=== PATIENT | female | born 1990 | race Caucasian/White ===

== ENCOUNTER 2020-03-28 05:07 | Inpatient (IN) | payer OTHER, SELFPAY ==
[2020-03-28] VITALS (140 sets, daily range): BP systolic 64–134; BP diastolic 31–86; PULSE 57–113; RESP 14–16; TEMP 36.3–37.2; O2SAT 96–100; BMI 32.1
--- NOTE | 2020-03-28 05:07 | LDADM ---
This patient, Fernanda Dickens, was admitted to Labor/Delivery/Recovery 104 on 03/28/20 at 05:07. Plans for labor, pain management and were discussed with patient. Patient/family oriented to hospital policies and general routines including ID bracelet, bed and alarms, visiting hours, pain management, procedures, bathroom and other care routines, personal items, smoking policy, room service/diet and guest tray routines, infant security routines, and visiting hours. Patient/Family are encouraged to report perceived risks to care and to ask questions if they do not understand what they are told or what they should do. See OBIX for further documentation.
[2020-03-28 05:42] LABS: Basophils Absolute Auto 0.1 K/mm3 (0.0-0.1); Basophils Percent Auto 0.6 % (0.2-1.2); Eosinophils Absolute Auto 0.2 K/mm3 (0-0.3); Eosinophils Percent Auto 1.8 % (0-4.4); Hematocrit 31.9 % (37.0-47.0); Hemoglobin 10.6 g/dL (12.0-15.0); Immature Granulocyte Absolute 0.03 K/mm3 (0.00-0.031); Immature Granulocyte Percent A 0.3 % (0-0.5); Lymphocytes Absolute Auto 2.06 K/mm3 (0.9-3.2); Lymphocytes Percent Auto 23.6 % (18.3-44.2); Mean Corpuscular HGB Conc 33.2 g/dl (32-36); Mean Corpuscular Hemoglobin 31.4 pg (26-34); Mean Corpuscular Volume 94.4 fl (80-100); Mean Platelet Volume 9.8 fl (7.4-10.4); Monocytes Absolute Auto 0.6 K/mm3 (0.1-0.6); Monocytes Percent Auto 6.4 % (2.6-8.5); Neutrophils Absolute Auto 5.9 K/mm3 (1.3-6.7); Neutrophils Percent Auto 67.3 % (45.5-73.1); Platelet Count Result 292 k/mm3 (150-375); Red Blood Count 3.38 M/mm3 (4.2-5.4); Red Cell Distribution Width 14.3 % (11.5-14.5); White Blood Count 8.7 K/mm3 (4.5-10.0)
[2020-03-28] MEDS: AMPICILLIN 2 GM/NS 100 ML 2 GM/100 ML BAG IVPB (05:48)
[2020-03-28] MEDS: LACTATED RINGERS 1,000 ML 125 ML IV CONT ×2 (05:48→09:08)
[2020-03-28] MEDS: OXYTOCIN 30 UNITS/NS 500 ML 30 UNITS/500 ML BAG IV CONT (05:53)
--- NOTE | 2020-03-28 07:25 | WPDOBADMIT ---
Obstetrics - Admit Note Admission Note: AROm clear fluid 2/ vertex record reviewed. No pertinent additions to the history and/or any subsequent changes in the physical findings that are not consistent with the expected course of the were found. Additions to the history and/or subsequent changes in the physical findings follow. None.
[2020-03-28] MEDS: LACTATED RINGERS 1,000 ML 999 ML IV CONT (07:54)
[2020-03-28 07:56] LABS: Rapid Plasma Reagin Non-Reactive (NonReactive)
[2020-03-28] MEDS: PHENYLEPHRINE 1,000 MCG/10 ML SYRINGE 1000 MCG (08:28)
--- NOTE | 2020-03-28 09:31 | WPDANESEPPF ---
Anes - Initial Pre Proc Eval Date/Time: 03/28/20 09:31 Surgeon: Mukesh Flores MD Pre Op Diagnosis: Induction of labor Patient Data Age: 29 Gender: F Height: 5 ft 4 in Weight: 85 kg Last Vital Signs Temp 37.2 C 03/28/20 07:58 Pulse 65 03/28/20 09:16 BP 113/63 03/28/20 09:16 Pulse Ox 98 03/28/20 09:30 Allergies Allergy/AdvReac Type Severity Reaction Status Date / Time latex Allergy Severe Anaphylactic Verified 05/19/13 23:09 Shock duloxetine [From Cymbalta] AdvReac Unknown Verified 03/28/20 05:31 pregabalin [From Lyrica] AdvReac Unknown Verified 03/28/20 05:31 Home Medications Medication Instructions Recorded Confirmed Type montelukast 10 mg PO DAILY 03/28/20 03/28/20 History omeprazole 20 mg PO DAILY 03/28/20 03/28/20 History Laboratory Tests 03/28/20 03/28/20 03/28/20 05:37 05:37 05:37 WBC 8.7 K/mm3 K/mm3 (4.5-10.0) RBC 3.38 M/mm3 L M/mm3 (4.2-5.4) Hgb 10.6 g/dL L g/dL (12.0-15.0) Hct 31.9 % L % (37.0-47.0) MCV 94.4 fl fl (80-100) MCH 31.4 pg pg (26-34) MCHC 33.2 g/dl g/dl (32-36) RDW 14.3 % % (11.5-14.5) Plt Count 292 k/mm3 k/mm3 (150-375) MPV 9.8 fl fl (7.4-10.4) Immature Gran % (Auto) 0.3 % % (0-0.5) Neut % (Auto) 67.3 % % (45.5-73.1) Lymph % (Auto) 23.6 % % (18.3-44.2) [place] % (Auto) 6.4 % % (2.6-8.5) Eos % (Auto) 1.8 % % (0-4.4) Baso % (Auto) 0.6 % % (0.2-1.2) Lymph # (Auto) 2.06 K/mm3 K/mm3 (0.9-3.2) [place] # (Auto) 0.6 K/mm3 K/mm3 (0.1-0.6) Eos # (Auto) 0.2 K/mm3 K/mm3 (0-0.3) Baso # (Auto) 0.1 K/mm3 K/mm3 (0.0-0.1) Abs Immat Gran (auto) 0.03 K/mm3 K/mm3 (0.00-0.031) Absolute Neuts (auto) 5.9 K/mm3 K/mm3 (1.3-6.7) Absolute Nucleated RBC 0.0 K/mm3 K/mm3 (0.0-0.012) Nucleated RBC % 0.0 % % (0.0-0.2) RPR Non-reactive (NonReactive) Blood Type O Positive Antibody Screen Negative Patient hx anesthesia problems: none Family hx anesthesia problems: none [facility] Past Medical History Medical History Asthma Social History Social History Smoking status: Never smoker Substance use: never Spiritual care concerns: No Anes - Eval Final PreProcedure Day of Procedure 03/28/20 09:31 Patient weight: overweight Neurological: alert and oriented Last oral intake: >/= 8 hours ASA classification: II Emergent: no Anesthetic plan: proceed Anesthesia type and monitoring: regional epidural and standard monitoring Informed Consent: The patient's anesthetic plan and its attendant risks and benefits were discussed with the patient/family/POA. Questions were solicited and answers provided to the satisfaction of the patient/family/POA.
[2020-03-28] MEDS: AMPICILLIN 1 GM/NS 50 ML 1 GM/50 ML BAG IVPB (09:45)
[2020-03-28 13:13] LABS: Amphetamine Screen Urine Negative (Negative); Barbiturate Screen Urine Negative (Negative); Benzodiazepines Screen Urine Negative (Negative); Cannabinoid Screen Urine Negative (Negative); Cocaine Screen Urine Negative (Negative); Methadone Screen Urine Negative (Negative); Opiate Screen Urine Negative (Negative); Phencyclidine Screen Urine Negative (Negative)
--- NOTE | 2020-03-28 14:26 | PM.OBPRVD ---
OB - Delivery Note Procedure Delivery date: 03/28/20 events: Labor Induction Intrapartal events: None Induction method: AROM and per pitocin protocol Delivery monitor: external FHT and external uterine Route of delivery: Laceration description: None Estimated blood loss (mL): 75 Anesthesia type: Epidural Disposition: observation [place] Baby Date of : 03/28/20 Time of : 14:02 Weeks of gestation at delivery: 39 gender: Female Weight (pounds): 7 Weight (ounces): 6 presentation: vertex Placenta delivery description: Spontaneous cord vessel description: 3 Vessels and Nuchal Cord score one minute: 9 score five minutes: 9
[2020-03-28] MEDS: OXYTOCIN 30 UNITS/NS 500 ML 30 UNITS/500 ML BAG 125 UNITS IV CONT (14:36)
[2020-03-28] MEDS: IBUPROFEN 600 MG TABLET PO (16:38)
[2020-03-28] MEDS: WITCH HAZEL 40 PADS 1 PAD TOPICAL (16:39)
[2020-03-28] MEDS: BENZOCAINE 20% AER SPR (*SP) 56 GM CAN 1 SPRAY TOPICAL (16:39)
[2020-03-29] MEDS: IBUPROFEN 600 MG TABLET PO ×3 (00:45→17:25)
[2020-03-29 05:31] LABS: Hematocrit 29.2 % (37.0-47.0); Hemoglobin 9.6 g/dL (12.0-15.0)
--- NOTE | 2020-03-29 07:54 | PM.OBPNVD ---
OB - PN: Subj Subjective Date/time seen: 03/29/20 07:54 Patient reports after pains and extreme crapping. ibuprofen not helping much bleeding light OB - PN: Obj Data Labs CBC & Chem 7: 03/29/20 04:12 Labs: Laboratory Results - last 24 hr 03/28/20 03/28/20 03/29/20 05:37 10:00 04:12 Hgb 9.6 L Hct 29.2 L Urine Opiates Screen Negative Urine Methadone Screen Negative Ur Barbiturates Screen Negative Ur Phencyclidine Scrn Negative Ur Amphetamine Screen Negative U Benzodiazepines Scrn Negative Urine Cocaine Screen Negative U Cannabinoids Screen Negative RPR Non-reactive OB - PN A/P Assessment and Plan (1) (normal spontaneous vaginal delivery): Code(s): O80 - Encounter for full-term uncomplicated delivery Status: Acute Assessment and Plan: continue with pp care. Time Spent With Patient Time: Total time spent is greater than 50% in coordination of care (as documented) at patient's floor/unit and/or counseling patient: Exam Const: General: comfortable GI: Other: ff below umbilicus
[2020-03-29 08:05] VITALS: BP 108/76; PULSE 71; RESP 18; TEMP 37.4; O2SAT 100
[2020-03-29] MEDS: MULTIVIT/MIN/PREN/FOL AC/IRON TABLET 1 TAB PO (08:28)
[2020-03-29] MEDS: DOCUSATE SODIUM 100 MG CAPSULE PO ×2 (08:28→17:25)
[2020-03-29] MEDS: POLYSACCHARIDE IRON COMPLEX 150 MG CAPSULE PO ×2 (08:28→17:24)
--- NOTE | 2020-03-29 08:45 | PC.NURSE ---
Consulted with patient, upon entering mother has infant to breast using a nipple shield. Mother reports she breastfed other children for several months with shield. Mother states she used the 16mm or 20mm and did not pump, until weeks later when returning to school. Mother felt she had an over supply with pumping Discussed nipple shield precautions and possible complications. Instructions given on application and cleaning of shield. Patient able to return demonstration on proper application of shield. Discussed the need to initiate pumping if infant continues to nurse with the shield. Patient verbalizes understanding.. Mother has in football position, holding breast in C hold, has a shallow latch with shield. Discussed adjusting latch more deeply while feeding. Mother reports she does not have discomfort. is full term infant, suggested a 24mm shield reviewing the 16 and 20 are freq used for or small infants. The 24mm flange may assist with obtaining deeper latch and flanging out lips. Reviewed feeding cues, frequencies, duration of feedings, feeding elimination flow sheet, and signs of adequate intake. Demonstrated stimulation techniques to wake for feeding. Assisted with to breast. Reviewed positioning/alignment, holding breast and asymmetrical latch on. Infant was able to latch correctly. Infant nursed eagerly, with steady draws and occasional swallowing noted. Reviewed signs of a correct latch, effective nursing and suck swallow ratio. was able to maintain latch without discomfort to mother. Discussed weaning techniques from shield. Nipple care reviewed. Suggested pumping with shield use until her milk is established and infant is gaining weight. Mother does not believe she needs to . Instructed mother to call out for RN assistance if she is unable to latch for feeding or she has discomfort with nursing. Instructed feeding should be initiated three hours from start of last feeding or if feeding cues are noted before. Mother voiced understanding of information shared.
--- NOTE | 2020-03-29 09:57 | PC.NURSE ---
Patient was given the opportunity to view the discharge video Mother & Baby Care, The First Two Weeks and to ask questions. Patient declined viewing the video and has been given the mother/baby guide for home reference. Pt. reports watching video with 2 previous children. FOB encouraged to watch due to this being his first child.
[2020-03-29 18:31] VITALS: BP 122/78; PULSE 68; RESP 15; TEMP 36.8; O2SAT 98
[2020-03-30] MEDS: IBUPROFEN 600 MG TABLET PO ×2 (00:39→07:25)
[2020-03-30] MEDS: DOCUSATE SODIUM 100 MG CAPSULE PO (07:25)
[2020-03-30] MEDS: MULTIVIT/MIN/PREN/FOL AC/IRON TABLET 1 TAB PO (07:26)
[2020-03-30] MEDS: POLYSACCHARIDE IRON COMPLEX 150 MG CAPSULE PO (07:26)
[2020-03-30 07:50] VITALS: BP 134/78; PULSE 75; RESP 18; TEMP 36.7
--- NOTE | 2020-03-30 10:07 | PM.OBPNVD ---
OB - PN: Subj Subjective Date/time seen: 03/30/20 10:07 Patient comments: no complaints baby status: doing well [place] feeding status: exclusively breast feeding OB - PN: Obj Data Labs CBC & Chem 7: 03/29/20 04:12 OB - PN A/P Assessment and Plan (1) (normal spontaneous vaginal delivery): Code(s): O80 - Encounter for full-term uncomplicated delivery Status: Acute Assessment and Plan: continue with pp care. Time Spent With Patient Time: Total time spent is greater than 50% in coordination of care (as documented) at patient's floor/unit and/or counseling patient: Exam GI: Other: ff below umbilicus
--- NOTE | 2020-04-15 06:28 | PM.OBDSVD ---
DS: Admitting Diagnosis Admitting Diagnosis Admitting Diagnosis: Encounter for supervision of normal , unspecified, third trimester DS: Discharge Diagnosis Discharge Diagnosis (1) (normal spontaneous vaginal delivery): Code(s): O80 - Encounter for full-term uncomplicated delivery Status: Acute OB - DS: Summary OB Procedures : None OB Procedures Intrapartum: Spontaneous Vag Delivery OB Procedures: : None Time Spent with Patient Time attestation: Total time spent providing and/or coordinating discharge services: Exam Const: General: comfortable GI: GI Palp: Yes Soft to palpation Discharge Plan Discharge Attending physician on discharge: Mukesh Flores Consulting providers: Oral Judge Discharging Clinician: Mukesh Flores Patient Disposition: Home, Self-Care Activity: may shower and pelvic rest Diet: regular Discharge Instructions: Education: Mom and Baby Guide Given to: Mother Follow-Up: Call your delivering provider's office for an appointment to be seen in: 6 Weeks Mom and baby should come to the [facility] for the follow-up appointment. Appointment Date/Time: April 01, 2020 at 10:00 am What to expect at your follow-up visit: Blood Pressure Check Physical Assessment Call [phone] if you are unable to keep your appointment time. BREAST CARE: 1. Wear a snug supportive bra. 2. For engorgement discomfort: Breast Feeding: A. Apply warm moist washcloths B. Express milk as needed to relieve engorgement C. Wear loose clothing Bottle Feeding: A. May apply ice packs 3. For sore nipples: A. Identify correct latch-on B. Apply warm moist washcloths before and after nursing C. Air dry nipples after nursing D. May apply Lansinoh cream to nipples EPISIOTOMY/PERINEAL CARE: 1. Until bleeding stops, use your mckenzie bottle after urinating 2. Change your pad frequently throughout the day 3. You may take sitz baths several times a day (fill your bathtub with warm water and soak for 20 minutes.) Do NOT bathe in the water 4. No tub baths until seen by your physician - You may shower ACTIVITY: 1. Rest as much as possible. 2. Do not exercise or lift anything heavier than your baby (such as laundry or other children.) 3. Avoid stairs or driving as much as possible. 4. Do not put anything into the vagina. No douching, tampons, or sexual activity until seen by physician. NOTIFY PHYSICIAN IF YOU HAVE ANY QUESTIONS OR IF ANY OF THE FOLLOWING SYMPTOMS OCCUR: 1. If your episiotomy or incision becomes red, swollen, or more painful than what you have experienced in the hospital. 2. If your vaginal bleeding becomes foul smelling. 3. If your vaginal bleeding becomes more heavy than a period or if your bleeding changes from pink to bright red. However, you may pass an occasional walnut-sized clot once or twice for the first week . 4. If you experience a sharp, shooting pain in you calves. 5. If you discover a hard, reddened area on your breast or if you experience flu-like symptoms. DIET: 1. Eat regular, well-balanced meals. 2. Drink plenty of fluids daily. If , drink to thirst. Stand Alone Forms: General Discharge Information Follow-up/Referrals: Mukesh Flores MD [Physician] - Discharge Medications: New polysaccharide iron complex 150 mg iron Capsule 150 mg PO BIDWM RF: 0 KPN Tablet 1 tab PO DAILY RF: 0 Continued omeprazole 20 mg capsule,delayed release(DR/EC) 20 mg PO DAILY RF: 0 montelukast 10 mg tablet 10 mg PO DAILY RF: 0 Date of admission: 03/28/20 05:07 Primary Care Provider: PHYSICIAN,DESIGN ENGINEERING SPECIALIST Admitting Provider: Mukesh Flores Discharge Date/Time: 03/30/20 12:27 Attending physician on admission: Mukesh Flores
== END 2020-03-30 12:27 | disposition home or self-care (01) | DRG 560 ==
LOC: ANHLDR 05:18 → ANHOB2 16:33
PROVIDERS: Admitting Provider Obstetrics & Gynecology; Visit Provider Obstetrics & Gynecology
DX: O99.824 Streptococcus B carrier state complicating childbirth (principal); Z37.0 Single live birth; Z3A.39 39 weeks gestation of pregnancy; O69.81X0 Labor and delivery complicated by cord around neck, without compression, not applicable or unspecified; O99.52 Diseases of the respiratory system complicating childbirth; J45.909 Unspecified asthma, uncomplicated; O99.62 Diseases of the digestive system complicating childbirth; K21.9 Gastro-esophageal reflux disease without esophagitis
CPT/HCPCS: 36415; 80307; 85014; 85018; 85025; 86592; 86850; 86900; 86901; A9270; J0290; J2370; J2590; J2795; J7120